=== PATIENT | female | born 1990 | race Asian ===

== ENCOUNTER 2017-07-28 20:50 | Inpatient (IN) | payer SELFPAY ==
[~2017-07-28] VITALS: Ht 170 cm; Wt 71.7 kg
[2017-07-28] MEDS ORDERED: PREN-380 PO (21:08)
[2017-07-28] MEDS ORDERED: CARBOPROST 250 MCG/ML AMP IM PRN (21:15)
[2017-07-28] MEDS ORDERED: OXYTOCIN 10 UNITS/ML VIAL IM SCH (21:15)
[2017-07-28] MEDS ORDERED: METHYLERGONOVINE 0.2 MG/ML AMP IM PRN (21:15)
[2017-07-28] MEDS ORDERED: PROMETHAZINE 25 MG/ML VIAL IVP SCH (21:15)
[2017-07-28] MEDS ORDERED: NALBUPHINE HYDROCHLORIDE 10 MG/ML VIAL IVP PRN (21:15)
[2017-07-28] MEDS ORDERED: OXYTOCIN 20 UNITS in LACTATED RINGERS 1,000 ML IV SCH (21:15)
[2017-07-28] MEDS ORDERED: NALBUPHINE HYDROCHLORIDE 10 MG/ML VIAL IVP SCH (21:15)
[2017-07-28] MEDS: LACTATED RINGERS 1,000 ML IV SCH (21:52)
[2017-07-28 21:58] LABS: BASOPHILS # (AUTO) 0.1 K/uL (0.00-0.22); EOSINOPHILS % (AUTO) 0.4 % (0.0-4.0); HEMATOCRIT 38.6 % (36-48); HEMOGLOBIN 12.8 g/dL (12.0-16.0); LYMPHOCYTES # (AUTO) 1.4 K/uL (2.5-16.5); LYMPHOCYTES % (AUTO) 13.6 % (20.5-51.1); MEAN CORPUSCULAR HEMOGLOBIN 29 pg (27-31); MEAN CORPUSCULAR HGB CONC 33 g/dL (33-37); MEAN CORPUSCULAR VOLUME 88 fL (80-94); MONOCYTES # (AUTO) 0.5 K/uL (0.8-1.0); MONOCYTES % (AUTO) 4.7 % (1.7-9.3); NEUTROPHILS # (AUTO) 8.3 K/uL (1.8-7.7); NEUTROPHILS % (AUTO) 80.3 % (42.2-75.2); PLATELET COUNT (AUTO) 247 K/uL (140-450); RED BLOOD CELL COUNT(AUTO) 4.39 MIL/uL (4.20-5.40); RED CELL DISTRIBUTION WIDTH 12.6 % (11.6-13.7); WHITE BLOOD COUNT (AUTO) 10.3 K/uL (4.8-10.8)
[2017-07-28] MEDS ORDERED: PROMETHAZINE 25 MG/ML VIAL ONE (21:58)
[2017-07-28] MEDS ORDERED: NALBUPHINE HYDROCHLORIDE 10 MG/ML VIAL ONE (21:58)
[2017-07-28] MEDS ORDERED: INFLUENZA VIRUS VACCINE QUAD 0.5 ML SYR IMVAC SCH (22:00)
[2017-07-28 22:08] LABS: ANION GAP 14.7 (8-16); CARBON DIOXIDE 22.9 mmol/L (21-32); CREATININE 0.6 mg/dL (0.6-1.3); POTASSIUM 3.6 mmol/L (3.5-5.1)
[2017-07-28 22:13] LABS: ALBUMIN 2.8 g/dL (3.4-5.0); TOTAL BILIRUBIN 0.3 mg/dL (0.0-1.0)
[2017-07-28 22:20] LABS: BILIRUBIN,URINE NEGATIVE (NEGATIVE); BLOOD, URINE NEGATIVE (NEGATIVE); COLOR,URINE YELLOW (YELLOW); LEUKOCYTE ESTERASE ,URINE TRACE (NEGATIVE); NITRITE, URINE NEGATIVE (NEGATIVE); PH,URINE 6.5 (5.0-9.0); UGLUCOSE NEGATIVE (NEGATIVE)
[2017-07-28 22:30] LABS: APPEARANCE,URINE SLIGHTLY HAZY (CLEAR)
[2017-07-28 22:32] LABS: RBC,URINE 0-5 (RARE) /HPF (0-5)
[2017-07-28 22:35] VITALS: BP 118/67
[2017-07-28] MEDS ORDERED: BUPIVACAINE 0.125%/NS PREMIX 250 ML ONE (23:53)
[2017-07-29] MEDS: LACTATED RINGERS 1,000 ML IV SCH ×2 (00:02→05:32)
[2017-07-29] MEDS ORDERED: OXYTOCIN 10 UNITS/ML VIAL ONE (03:10)
[2017-07-29] MEDS ORDERED: OXYTOCIN 20 UNITS/LR PREMIX 1,000 ML IV ONE (03:10)
[2017-07-29] MEDS ORDERED: METHYLERGONOVINE 0.2 MG TAB PO PRN (13:35)
[2017-07-29] MEDS ORDERED: TEMAZEPAM 15 MG CAP PO PRN (13:35)
[2017-07-29] MEDS ORDERED: OXYTOCIN 10 UNITS/ML VIAL IM PRN (13:35)
[2017-07-29] MEDS ORDERED: SODIUM PHOSPHATE 118 ML ENEM RC PRN (13:35)
[2017-07-29] MEDS ORDERED: BISACODYL 10 MG SUPP RC PRN (13:35)
[2017-07-29] MEDS ORDERED: BENZOCAINE/MENTHOL 20%-0.5% 60 GM CAN TP PRN (13:35)
[2017-07-29] MEDS ORDERED: METHYLERGONOVINE 0.2 MG/ML AMP IM PRN (13:35)
[2017-07-29] MEDS ORDERED: HYDROcodone/APAP 5/325 MG 1 TAB TAB PO PRN ×2 (13:35→14:15)
[2017-07-29] MEDS ORDERED: MEASLES, MUMPS, AND RUBELLA 1 VIAL SQVAC PRN (13:35)
[2017-07-29] MEDS ORDERED: oxyCODONE/APAP 5/325 MG 1 TAB TAB PO PRN ×2 (13:35→14:15)
[2017-07-29] MEDS ORDERED: CALCIUM POLYCARBOPHIL 625 MG TAB PO SCH (17:00)
[2017-07-29] MEDS ORDERED: DOCUSATE SODIUM 100 MG GELCAP PO SCH (21:00)
[2017-07-30 07:01] LABS: HEMATOCRIT 31.9 % (36-48); HEMOGLOBIN 10.4 g/dL (12.0-16.0)
--- NOTE | 2017-07-30 10:17 | NUR ---
PATIENT HAS BEEN SCREENED AND CATEGORIZED LOW NUTRITION RISK. PATIENT WILL BE SEEN WITHIN 7 DAYS OF ADMISSION. 08/04/[address]
== END 2017-07-30 17:45 | disposition home or self-care (01) | DRG 775 ==
LOC: MLD 20:50 → MFCC 07-29 13:20
PROVIDERS: ADMIT Obstetrics & Gynecology; ATTEND Obstetrics & Gynecology
PROC: 10D07Z6 Extraction of Products of Conception, Vacuum, Via Natural or Artificial Opening (ICD-10-PCS; principal; 2017-07-29)
PROC: 10907ZC Drainage of Amniotic Fluid, Therapeutic from Products of Conception, Via Natural or Artificial Opening (ICD-10-PCS; 2017-07-29)
PROC: 0W8NXZZ Division of Female Perineum, External Approach (ICD-10-PCS; 2017-07-29)
PROC: 00HU33Z Insertion of Infusion Device into Spinal Canal, Percutaneous Approach (ICD-10-PCS; 2017-07-29)
PROC: 3E0R3BZ Introduction of Anesthetic Agent into Spinal Canal, Percutaneous Approach (ICD-10-PCS; 2017-07-29)
DX: O89.4 Spinal and epidural anesthesia-induced headache during the puerperium (principal); Z37.0 Single live birth; Z3A.39 39 weeks gestation of pregnancy; Z83.3 Family history of diabetes mellitus; Z82.49 Family history of ischemic heart disease and other diseases of the circulatory system; Z83.49 Family history of other endocrine, nutritional and metabolic diseases
CPT/HCPCS: 36415; 51702; 59409; 80053; 81001; 85018; 85025; 86592; 86886; 86900; 86901; 87086; J2300; J2550; J2590; J3490; J7120